=== PATIENT | female | born 2000 | race Caucasian/White ===

== ENCOUNTER 2019-12-19 05:46 | Emergency (ER) | payer BC, SELFPAY ==
[2019-12-19 05:48] VITALS: BP 119/86; PULSE 111; RESP 18; TEMP 36.7; O2SAT 100; BMI 22.8
--- NOTE | 2019-12-19 06:01 | RAD_ITS ---
HISTORY: SLEPT WRONG AND DISLOCATED RT SHOULDER ADDITIONAL HISTORY: None provided. EXAMINATION/TECHNIQUE: XR Shoulder Min 2 Views Right Number of images including paperwork: 3 COMPARISON: None FINDINGS: BONES: No acute fracture. JOINTS: Anterior inferior right shoulder dislocation. SOFT TISSUES: No distinct foreign body. RAD/Shoulder min 2 Views IMPRESSION: Anterior inferior right shoulder dislocation. at 0620 Reported and signed by: Leidy Albrecht MD Electronically Signed: Leidy Albrecht MD at 6:20 EDT Tel , Service support ,
--- NOTE | 2019-12-19 06:02 | ED.DCSUM_ITS ---
History of Present Illness Chief Complaint: Upper Extremity Injury Informant: Patient Onset: Today Context: Onset with activity, - - awoke with sx Quality of Pain: Aching Location: R shoulder Current Severity: Mild Maximum Severity: Moderate Worsened by: trying to move Relieved by: remaining still Associated Symptoms: Loss of Funtion. 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 She woke up with what is painful and feels worse than what she has had in the past, without any known injury. She did follow-up with orthopedics once remotely, had negative x- rays at that time and was told she may have a labrum injury. [id number]. Past Medical History - Allergies and Home Meds Allergies/Adverse Reactions: Allergies No Known Allergies Allergy (Verified 12/19/19 05:47) Primary Care Physician: Adwoa Contreras,Out of [Primary Care Provider] - Past Medical History: None Lives: Roommate Smoking Status: Never smoker Alcohol: Occasional Review of Systems General: Denies: Chills, Fever, Sweats Eyes: Denies: Visual changes - bilaterally, Diplopia ENT: Denies: Rhinorrhea, Sore throat Cardiovascular: Denies: Chest pain, Palpitations Respiratory: Denies: Dyspnea, Cough, Dyspnea on exertion Gastrointestinal: Denies: Abdominal pain, Nausea, Vomiting, Diarrhea, Melena, Hematochezia Genitourinary: Denies: Dysuria, Hematuria, Frequency Musculoskeletal: Reports: Extremity Pain. Denies: Back pain Skin: Denies: Rash, Wounds Neurological: Denies: Headache, Weakness, Numbness Physical Exam Vital Signs/Narrative: Vital Signs Temp Pulse Resp BP Pulse Ox 12/19/19 05:48 98.1 F 111 H 18 119/86 H 100 General: Well nourished, Well developed, - - Well-appearing no distress Head: Normocephalic, Atraumatic Eyes: Perrl, EOMI ENT: No Trauma, Moist Mucous Membranes Neck: Nontender, Full ROM Respiratory: No distress Extremeties: Holding right upper extremity position of comfort in homemade sling. There is a deformity at the right shoulder consistent with anterior dislocation of the humeral head, there is abnormal amount of space in the subacromial area. No clavicle or acromioclavicular joint tenderness. Good sensation present axillary nerve distribution. Skin: Normal color, No rash, No Trauma Neurological: Alert, Oriented x3, Cranial nerves II-XII grossly intact, Normal Strength - Including right upper extremity median, radial, ulnar nerves, Normal Sensation, Normal Gait Psychological: Normal affect, Normal Mood Diagnostic/Tx/Re-eval Clinical Impression(s) from Imaging Studies Shoulder X-Ray 12/19/19 06:01 IMPRESSION: Anterior inferior right shoulder dislocation. at 0620 Reported and signed by: Leidy Albrecht MD Electronically Signed: Leidy Albrecht MD at 6:20 EDT Tel , Service support , - Medical Decision Making X-rays as above consistent with anterior dislocation, however prior to even reevaluating the patient she moved her shoulder and actually self reduced it. She said it felt much better. Postreduction films were obtained, and on my interpretation 2 view post reduction x-rays of the right shoulder show normal alignment of the humeral head at the glenoid fossa with resolution of the dislocation. She is placed in a sling and given follow-up instructions for orthopedics, she likely has a torn labrum giving her instability. She was counseled regarding avoiding external rotation and extreme internal rotation as well. ED Disposition - Plan for ED Patient: Disposition: Home or Assisted Living Diagnosis: Closed anterior dislocation of right shoulder Instructions: ED Dislocation Shoulder Redu, ED Sling and Swathe Referrals: Bridgette Carpenter DO [STAFF PHYSICIAN] - (call for appt)
--- NOTE | 2019-12-19 06:15 | RAD_ITS ---
HISTORY: POST REDUCTION ADDITIONAL HISTORY: None provided. EXAMINATION/TECHNIQUE: XR Shoulder Min 2 Views Right Number of images including paperwork: 2 COMPARISON: None FINDINGS: BONES: No acute fracture. JOINTS: Anterior inferior right shoulder dislocation has been reduced. SOFT TISSUES: No distinct foreign body. RAD/Shoulder min 2 Views IMPRESSION: Reduction of right shoulder dislocation. at 0628 Reported and signed by: Leidy Albrecht MD Electronically Signed: Leidy Albrecht MD at 6:28 EDT Tel , Service support ,
== END 2019-12-19 06:50 | disposition home or self-care (01) ==
LOC: ED 06:45
PROVIDERS: Emergency Provider Emergency Medicine
DX: S43.014A Anterior dislocation of right humerus, initial encounter (principal); S43.034A Inferior dislocation of right humerus, initial encounter; X58.XXXA Exposure to other specified factors, initial encounter; Y93.16 Activity, rowing, canoeing, kayaking, rafting and tubing; Y92.9 Unspecified place or not applicable
CPT/HCPCS: 73030; 99283